=== PATIENT | male | born 1965 | race Caucasian/White ===

== ENCOUNTER → 2020-05-23 06:21 | Outpatient (CLI) | payer SELFPAY ==
--- NOTE | 2020-05-23 06:33 | CT_ITS ---
PROCEDURE: CT HEART W CALCIUM SCORE CLINICAL HISTORY: SCREEN COMPARISON: No exams were available for comparison TECHNIQUE: Axial images obtained with sagittal and coronal reformats. All CT scans at the facility use one or more dose reduction, viz: automated exposure control, ma/kV adjustment per patient size (including targeted exams where dose is matched to indication, i.e. head), or iterative reconstruction technique. FINDINGS: Coronary artery calcium score is 42. Mild calcific plaque burden with moderate cardiovascular disease risk. Incidental note is made of a small precarinal lymph node at 17 mm and small subcarinal nodes. IMPRESSION: Mild calcific plaque burden with moderate cardiovascular disease risk Dictated by: Joseph May MD 05/23/2020 11:02 Joseph May MD in [facility] 05/23/2020 11:02
== END ==
PROVIDERS: PCP Family Medicine; Visit Provider Family Medicine
DX: Z13.6 Encounter for screening for cardiovascular disorders (principal)
CPT/HCPCS: 75571